=== PATIENT | female | born 1975 | race Caucasian/White ===

== ENCOUNTER 2017-10-01 09:00 | Emergency (ER) | payer OTHER ==
[~2017-10-01] VITALS: Ht 154.9 cm; Wt 111.7 kg
[~2017-10-01 09:00] MED LIST: ATIVAN0.5 MG PO; BENADRYL25 MG PO; CLINDAMYCIN HC300 MG PO; DIOVAN40 MG PO; FAT BLOCKER PL1 EACH PO; FLONASE16 G1 BOTH NARES; FLOVENT HFA10.6 GM IH; FLUTICASONE PRO16 GM BOTH NARES; HYDROCHLOROTH12.5 M3 PO; KEFLEX500 MG PO; LEVAQUIN750 MG PO; LEVOFLOXACIN750 MG PO; LEVOTHYROXINE150 MCG PO; LEVOXYL150 MCG PO; LORAZEPAM0.5 MG PO; LORTAB 7.5-500473 ML PO; NAPROSYN500 MG PO; NAPROXEN500 MG PO; NOHOMEMEDS; PANTOPRAZOLE SO40 MG PO; PREDNISONE20 MG PO; PREVACID30 MG PO; PRILOSEC40 MG PO; PROVENTIL,200 INHALA IH; SERTRALINE HCL100 MG PO; SINGULAIR10 MG PO; SINGULAIR4 MG PO; TAMIFLU75 MG PO; TRAMADOL HCL50 MG PO; TRAZODONE HCL50 MG PO; TYLENOL COLD M1 EAC1 PO; VENTOLIN HFA18 GM IH; [UNRECOGNIZED DRUG - OTHER] PO
[2017-10-01] MEDS ORDERED: CLEOCIN300 MG PO (11:28)
[2017-10-01] MEDS ORDERED: NAPROSYN500 MG PO (11:28)
[2017-10-01] MEDS ORDERED: CLEOCIN150 MG PO (11:28)
[2017-10-01 11:55] VITALS: BP 116/90
== END 2017-10-01 11:59 | disposition home or self-care (01) ==
LOC: EME 09:00
DX: K04.7 Periapical abscess without sinus (principal); G89.29 Other chronic pain; G20 Parkinson's disease; M41.9 Scoliosis, unspecified; F41.9 Anxiety disorder, unspecified; F32.9 Major depressive disorder, single episode, unspecified; Z85.850 Personal history of malignant neoplasm of thyroid; Z88.2 Allergy status to sulfonamides; Z88.0 Allergy status to penicillin; Z88.8 Allergy status to other drugs, medicaments and biological substances
CPT/HCPCS: 99281; 99284; J1885

== ENCOUNTER 2018-04-09 12:44 | Emergency (ER) | payer OTHER ==
[~2018-04-09] VITALS: Ht 152.4 cm; Wt 107.5 kg
[~2018-04-09 12:44] MED LIST changes: +CLEOCIN150 MG PO; +CLEOCIN300 MG PO
[2018-04-09 14:44] LABS: HEMATOCRIT 37.5 % (36.0-46.0); HEMOGLOBIN 12.7 G/DL (11.9-15.5); MCH 28.5 PG (29.0-34.0); MCHC 33.9 G/DL (30.0-36.0); MCV 84.1 FL (83-99); PLATELET COUNT 227 K/uL (156-360); RBC DIS.WIDTH-CV 13.2 % (11.8-14.6); RBC DIS.WIDTH-SD 40.7 % (39-53); RED BLOOD COUNT 4.46 M/uL (3.80-5.20); WHITE BLOOD COUNT 7.4 K/uL (4.1-10.2)
[2018-04-09 14:53] LABS: CHLORIDE 106 mEq/L (99-109); POTASSIUM 3.7 mEq/L (3.7-5.4); SODIUM 143 mEq/L (136-147)
[2018-04-09 14:55] LABS: GLUCOSE 81 mg/dL (70-99)
[2018-04-09 14:59] LABS: CREATININE 0.8 mg/dL (0.6-1.3); GFR ESTIMATE (CALCULATED) > 59 mL/min/
[2018-04-09 15:00] LABS: UREA NITROGEN (BUN) 14 mg/dL (9-23)
[2018-04-09 15:09] LABS: QUANTITATIVE HCG < 4.0 MIU/ML
[2018-04-09 15:17] LABS: APPEARANCE TURBID ((CLEAR)); BILIRUBIN NEGATIVE; BLOOD SMALL; COLOR AMBER ((YELLOW)); GLUCOSE (STRIP) NEGATIVE; KETONES 5; LEUKOCYTES MODERATE; NITRITE NEGATIVE; PROTEIN (STRIP) 30; SPECIFIC GRAVITY 1.032 (1.000-1.030); UROBILINOGEN 0.2 MG/DL (0.2-1.0)
[2018-04-09 15:30] LABS: AMPHETAMINE NEGATIVE (500 ng/mL); COCAINE NEGATIVE (150 ng/mL); METHAMPHETAMINE NEGATIVE (500 ng/mL); OPIATES (MORPHINE) NEGATIVE (100 ng/mL); PHENCYCLIDINE NEGATIVE (25 ng/mL); THC CANNABINOIDS NEGATIVE (50 ng/mL)
[2018-04-09 15:31] LABS: BARBITURATES NEGATIVE (200 ng/mL); BENZODIAZEPINES PRESUMPTIVE POSITIVE (150 ng/mL); BUPRENORPHINE NEGATIVE (10 ng/mL); METHADONE NEGATIVE (200 ng/mL); OXYCODONE NEGATIVE (100 ng/mL); PROPOXYPHENE NEGATIVE (300 ng/mL); TRICYCLIC ANTIDEPRESSANTS NEGATIVE (300 ng/mL)
[2018-04-09 16:03] LABS: BENZODIAZEPINES, URINE SCREEN POSITIVE (200 ng/mL)
[2018-04-09 16:08] LABS: BACTERIA 2+ /HPF; EPITHELIAL CELLS 2+ /HPF; MUCUS NONE SEEN /LPF; RED BLOOD CELLS RARE /HPF (0-5)
[2018-04-10 02:07] LABS: APPEARANCE CLOUDY ((CLEAR)); BILIRUBIN NEGATIVE; BLOOD MODERATE; COLOR YELLOW ((YELLOW)); GLUCOSE (STRIP) NEGATIVE; KETONES 5; LEUKOCYTES MODERATE; NITRITE NEGATIVE; PROTEIN (STRIP) 30; SPECIFIC GRAVITY 1.031 (1.000-1.030); UROBILINOGEN 0.2 MG/DL (0.2-1.0)
[2018-04-10 02:15] LABS: BACTERIA RARE /HPF; CALCIUM OXALATE CRYSTALS 4+ /HPF; EPITHELIAL CELLS 4+ /HPF; MUCUS 2+ /LPF; UCUL ADDED? YES; WHITE BLOOD CELLS 20-30 /HPF (0-5)
[2018-04-10 03:00] VITALS: BP 119/72
== END 2018-04-10 05:19 ==
LOC: EME 12:44
PROVIDERS: Nurse Practitioner Family; Physician Assistant
DX: R45.851 Suicidal ideations (principal); F32.9 Major depressive disorder, single episode, unspecified; G20 Parkinson's disease; E11.9 Type 2 diabetes mellitus without complications; I10 Essential (primary) hypertension; K21.9 Gastro-esophageal reflux disease without esophagitis; J45.909 Unspecified asthma, uncomplicated; Z85.850 Personal history of malignant neoplasm of thyroid; Z88.0 Allergy status to penicillin; Z88.2 Allergy status to sulfonamides
CPT/HCPCS: 80048; 81003; 84702; 84999; 85027; 87086; 87177; 87493; 87506; 90837; 99281; 99284